=== PATIENT | female | born 1995 ===

== ENCOUNTER 2024-12-26 08:02 | Outpatient (CLI) | payer OTHER | END 2024-12-26 08:03 | disposition home or self-care (01) | LOC: PRENATAL 08:02 | PROVIDERS: ATTEND Obstetrics & Gynecology Maternal & Fetal Medicine | DX: O36.80X0 Pregnancy with inconclusive fetal viability, not applicable or unspecified (principal); O26.899 Other specified pregnancy related conditions, unspecified trimester; Z3A.01 Less than 8 weeks gestation of pregnancy ==

== ENCOUNTER → 2025-01-17 12:10 | Outpatient (CLI) | payer OTHER | END | disposition home or self-care (01) | LOC: PRENATAL 12:10 | PROVIDERS: ATTEND Obstetrics & Gynecology Maternal & Fetal Medicine | DX: O36.80X0 Pregnancy with inconclusive fetal viability, not applicable or unspecified (principal); O34.10 Maternal care for benign tumor of corpus uteri, unspecified trimester; O26.899 Other specified pregnancy related conditions, unspecified trimester; Z3A.09 9 weeks gestation of pregnancy ==